=== PATIENT | female | born 1960 | race Two or more races ===

== ENCOUNTER 2017-03-05 20:58 | Emergency (ER) | payer OTHER ==
[2017-03-05 21:08] VITALS: BP 142/92; PULSE 88; RESP 20; TEMP 98.4; O2SAT 97
[2017-03-05] MEDS ORDERED: NEOMYCIN/POLYMYX B/HC SUSP 10 ML OTIC.BTL LEFTEAR ONE (21:43)
--- NOTE | 2017-03-05 21:43 | EDPHY ---
H & P Time Seen by Provider: 03/05/17 21:32 HPI/ROS: CHIEF COMPLAINT: Bleeding from left ear HISTORY OF PRESENT ILLNESS: 56-year-old female presents with a small amount of blood which has been trickling from her left ear since 5:00 p.m.. Patient took a shower at 4:00 p.m. and clean her ears with Q-tips. At 5:00 p.m. she noticed a small amount of blood. She has not been ill. No upper respiratory infection symptoms, no ear pain, no cough, no fever, no head trauma. She is on no anticoagulants or aspirin. REVIEW OF SYSTEMS: Aside from elements discussed in the HPI, a comprehensive 10-point review of systems was reviewed and is negative. PAST MEDICAL HISTORY: Denies. SOCIAL HISTORY: Greek-speaking only. Here with her family. GENERAL APPEARANCE: Alert, looks well.. FOCUSED EXAM OF HEENT: Atraumatic. Pupils equal round reactive to light. Extraocular movements intact. Left ear: Small amount of blood at the external auditory canal. Examination demonstrates abrasion just inside the external auditory canal. Tympanic membrane is intact. No hemotympanum. Right tympanic membrane is normal. Oropharynx is clear. Smoking Status: Never smoked Constitutional: Initial Vital Signs Temperature (C) 36.9 C 03/05/17 21:04 Heart Rate 88 03/05/17 21:04 Respiratory Rate 20 03/05/17 21:04 Blood Pressure 142/92 H 03/05/17 21:04 O2 Sat (%) 97 03/05/17 21:04 O2 Delivery Mode Room Air Allergies/Adverse Reactions: No Known Allergies Allergy (Unverified 03/05/17 21:02) Home Medications: Medication Instructions Recorded Metformin HCl 03/05/17 MDM/Departure - MDM Medications Given: Discontinued Medications Neomycin/Polymyxin/Hydrocortisone (Cortisporin Otic Suspension) 1 - 2 drops LEFTEAR EDNOW ONE Stop: 03/05/17 21:44 Last Admin: 03/05/17 22:03 Dose: 2 drops ED Course/Re-evaluation: Patient was advised to use Cortisporin otic suspension into the ear canal 4 times a day for the next several days. She was advised not to place anything into her ear other than a Q-tip just at the entrance. She will follow up with the primary care physician. Please see the discharge instructions. Differential Diagnosis: My differential diagnosis includes external auditory canal trauma, otitis externa, perforated tympanic membrane, otitis media, hemotympanum. - Depart Disposition: Home, Routine, Self-Care Clinical Impression: External auditory canal trauma Condition: Good Instructions: Colistin/Neomycin/Hydrocortisone (Into the ear) Additional Instructions: Please put 1-2 drops into the left ear 3 to 4 times a day to help heal the abrasions for [address] a small amount of cotton in the ear to prevent bleeding while you sleep. If you develop a fever, increased pain, or other concerns, please follow up with her primary care physician. 1. Por favor 1-2 gotas en el oido jer 3 o 4 veces al yoly para ayudar a sanar. 2. Puede colocar un algondoncito pequeo en el oido para prevenir el sangrado mientras duerme. 3. Si desarrolla fiebre, aumenta el dolor, o tiene otras preocupaciones por favor cindy seguimiento con [place] doctor de cabecera. Referrals: [facility],. [Clinic] - As per Instructions Print Language: Greek
== END 2017-03-05 22:20 | disposition home or self-care (01) ==
DX: S09.91XA Unspecified injury of ear, initial encounter (principal); X58.XXXA Exposure to other specified factors, initial encounter